=== PATIENT | male | born 1975 | race Hispanic/Latino ===

== ENCOUNTER 2016-09-15 14:38 | Emergency (ER) | payer OTHER ==
[2016-09-15 14:44] VITALS: BMI 33.2
[2016-09-15 14:48] VITALS: BP 111/77; PULSE 100; RESP 16; TEMP 98.7; O2SAT 98
--- NOTE | 2016-09-15 15:02 | ED PDOC ---
Arrival/HPI - General Chief Complaint: Abnormal Skin Integrity Time Seen by Provider: 09/15/16 14:56 Historian: Patient - History of Present Illness Narrative History of Present Illness (Text): 09/15/16 14:59 40 y/o male, pmh including bells palsy, nkda, c/o rt. sided scalp lump with pain started yesterday. Acing pain, pimple like sensation, painful to touch, no fever or chills, no headache or night sweat, no dizziness, no numbness or tingling, no palpitation, no rash, no other medical or psychological complaints. Past Medical History - Provider Review Nursing Documentation Reviewed: Yes - Infectious Disease Hx of Infectious Diseases: None - Neurological Other/Comment: granados's palsy - Psychiatric Hx Substance Use: No - Anesthesia Hx Anesthesia: No Family/Social History - Physician Review Nursing Documentation Reviewed: Yes Family/Social History: Unknown Family HX Smoking Status: Unknown If Ever Smoked Hx Alcohol Use: No Hx Substance Use: No Allergies/Home Meds Allergies/Adverse Reactions: Allergies No Known Allergies Allergy (Verified 05/06/16 11:23) Review of Systems - Review of Systems Constitutional: absent: Fatigue, Fevers Eyes: absent: Vision Changes ENT: absent: Hearing Changes Respiratory: absent: SOB, Cough Cardiovascular: absent: Chest Pain Gastrointestinal: absent: Abdominal Pain, Vomiting Psychiatric: absent: Anxiety, Depression, Suicidal Ideation Physical Exam Vital Signs Reviewed: Yes Vital Signs Temp Pulse Resp BP Pulse Ox 09/15/16 14:38 98.7 F 100 H 16 111/77 98 Temperature: Afebrile Blood Pressure: Normal Respiratory Rate: Normal Appearance: Positive for: Well-Appearing, Non-Toxic, Comfortable Pain Distress: Mild Mental Status: Positive for: Alert and Oriented X 3 - Systems Exam Head: Present: Atraumatic, Normocephalic, Other (rt. posterior occipital region visible and palpable approx. 1cm diameter with no fluctuant abscess pimple like , no cellulitis or streaking, no ulcers. ). No: Tenderness, Contusion, Swelling , Ecchymosis, Abrasion, Laceration Pupils: Present: PERRL Extroacular Muscles: Present: EOMI Conjunctiva: Present: Normal Mouth: Present: Moist Mucous Membranes Neck: Present: Normal Range of Motion Respiratory/Chest: Present: Clear to Auscultation, Good Air Exchange. No: Respiratory Distress, Accessory Muscle Use Cardiovascular: Present: Regular Rate and Rhythm, Normal S1, S2. No: Murmurs Abdomen: Present: Normal Bowel Sounds. No: Tenderness, Distention, Peritoneal Signs Back: Present: Normal Inspection Upper Extremity: Present: Normal Inspection. No: Cyanosis, Edema Lower Extremity: Present: Normal Inspection. No: Edema Neurological: Present: GCS=15, CN II-XII Intact, Speech Normal Skin: Present: Warm, Dry, Normal Color. No: Rashes Psychiatric: Present: Alert, Oriented x 3, Normal Insight, Normal Concentration Medical Decision Making ED Course and Treatment: 09/15/16 15:01 -clindmaycin 300mg po and motrin ordered. -Discharge home with clindamycin, motrin, warm compress, follow up with your own pmd within 2 days, return to the ER for any new or worsening signs or symptoms. - PA / CLINICAL COURIER / Resident Statement / has reviewed & agrees with the documentation as recorded. Disposition/Present on Arrival - Present on Arrival Any Indicators Present on Arrival: No History of DVT/PE: No History of Uncontrolled Diabetes: No Urinary Catheter: No History of Decub. Ulcer: No History Surgical Site Infection Following: None - Disposition Have Diagnosis and Disposition been Completed?: Yes Diagnosis: Furuncle of head, except face Disposition: HOME/ ROUTINE Disposition Time: 15:02 Patient Plan: Discharge Condition: GOOD Additional Instructions: Discharge home with clindamycin, motrin, warm compress, follow up with your own pmd within 2 days, return to the ER for any new or worsening signs or symptoms. Prescriptions: Clindamycin [Cleocin] 300 mg PO TID #27 cap Ibuprofen [Motrin Tab] 600 mg PO QID PRN #24 tab PRN Reason: Other Referrals: Celestino Baker MD [Staff Provider] - Follow up with primary [facility] [place] - Follow up with primary Forms: WORK NOTE
--- NOTE | 2016-09-15 15:40 | CT ---
PROCEDURE: CT HEAD WITHOUT CONTRAST. HISTORY: rt. lateral occipital lump? furuncle? COMPARISON: 05/06/16. TECHNIQUE: Axial computed tomography images were obtained through the head/brain without intravenous contrast. Radiation dose: Total exam DLP = 802 mGy-cm. This CT exam was performed using one or more of the following dose reduction techniques: Automated exposure control, adjustment of the mA and/or kV according to patient size, and/or use of iterative reconstruction technique. FINDINGS: HEMORRHAGE: No intracranial hemorrhage. BRAIN: No mass effect or edema. No atrophy or chronic microvascular ischemic changes. VENTRICLES: Unremarkable. No hydrocephalus. CALVARIUM: Unremarkable. PARANASAL SINUSES: Unremarkable as visualized. No significant inflammatory changes. MASTOID AIR CELLS: Unremarkable as visualized. No inflammatory changes. OTHER FINDINGS: Scattered small right para occipital lymph nodes. IMPRESSION: Scattered small right para occipital lymph nodes. No intracranial hemorrhage.
== END 2016-09-15 16:29 | disposition home or self-care (01) ==
LOC: ED 14:38
DX: L02.821 Furuncle of head [any part, except face] (principal)

== ENCOUNTER 2017-03-12 15:37 | Emergency (ER) | payer OTHER ==
[2017-03-12 16:03] VITALS: BMI 33.0
[2017-03-12 16:16] VITALS: BP 124/77; PULSE 84; RESP 17; TEMP 98.5; O2SAT 97
--- NOTE | 2017-03-12 16:46 | ED PDOC ---
Arrival/HPI - General Chief Complaint: ENT Problem Time Seen by Provider: 03/12/17 15:47 Historian: Patient - History of Present Illness Narrative History of Present Illness (Text): 03/12/17 16:43 41 y/o male, pmh including bells palsy, c/o lt. ear pain x 3 days. aching pain , aggravated by bitting, no change in vision, no dizziness, no throat no headache, no night sweat, no other medical or psychological complaints. Past Medical History - Provider Review Nursing Documentation Reviewed: Yes - Infectious Disease Hx of Infectious Diseases: None - Cardiac Hx Cardiac Disorders: No - Pulmonary Hx Respiratory Disorders: No Hx Chronic Obstructive Pulmonary Disease (COPD): No - Neurological Hx Neurological Disorder: Yes Other/Comment: granados's palsy right facial side. - HEENT Hx HEENT Disorder: No - Renal Hx Renal Disorder: No - Endocrine/Metabolic Hx Endocrine Disorders: No - Hematological/Oncological Hx Blood Disorders: No - Integumentary Hx Dermatological Disorder: No - Musculoskeletal/Rheumatological Hx Musculoskeletal Disorders: No - Gastrointestinal Hx Gastrointestinal Disorders: No - Genitourinary/Gynecological Hx Genitourinary Disorders: No - Psychiatric Hx Psychophysiologic Disorder: No Hx Substance Use: No - Anesthesia Hx Anesthesia: No Family/Social History - Physician Review Nursing Documentation Reviewed: Yes Family/Social History: Unknown Family HX Smoking Status: Current Some Days Smoker Hx Alcohol Use: No Hx Substance Use: No Allergies/Home Meds Allergies/Adverse Reactions: Allergies No Known Allergies Allergy (Verified 03/12/17 16:04) Review of Systems - Review of Systems Constitutional: absent: Fatigue, Fevers Eyes: absent: Vision Changes ENT: Other (lt. ear pain). absent: Hearing Changes Respiratory: absent: SOB, Cough Cardiovascular: absent: Chest Pain Gastrointestinal: absent: Abdominal Pain, Nausea, Vomiting Musculoskeletal: absent: Arthralgias, Back Pain Skin: absent: Rash, Pruritis Neurological: absent: Headache, Dizziness Psychiatric: absent: Anxiety, Depression, Suicidal Ideation Physical Exam Vital Signs Reviewed: Yes Vital Signs Temp Pulse Resp BP Pulse Ox 03/12/17 16:15 98.5 F 84 17 124/77 97 Temperature: Afebrile Blood Pressure: Normal Pulse: Regular Respiratory Rate: Normal Appearance: Positive for: Well-Appearing, Non-Toxic, Comfortable Pain Distress: Mild Mental Status: Positive for: Alert and Oriented X 3 - Systems Exam Head: Present: Atraumatic, Normocephalic Pupils: Present: PERRL Extroacular Muscles: Present: EOMI Conjunctiva: Present: Normal Ears: Present: Other (Ears: Lt. TM mild erythematous and intact, rt. TM tirso color and intact, bilateral auditory canals non-erythematous, no mastoid tenderness. ) Mouth: Present: Moist Mucous Membranes, Normal Tounge, Normal Teeth Pharnyx: No: ERYTHEMA, EXUDATE, TONSILS ENLARGED, Uvular Deviation, Muffled/ Hoarse Voice, Strider, Soft Palate/Uvular Edema Nose (External): Present: Atraumatic. No: Abrasion, Contusion Nose (Internal): Present: Normal Inspection, No Active Bleeding. No: Rhinorrhea , Septal Hematoma, Epistaxis Neck: Present: Normal Range of Motion Respiratory/Chest: Present: Clear to Auscultation, Good Air Exchange. No: Respiratory Distress, Accessory Muscle Use Cardiovascular: Present: Regular Rate and Rhythm, Normal S1, S2. No: Murmurs Abdomen: Present: Normal Bowel Sounds. No: Tenderness, Distention, Peritoneal Signs Back: Present: Normal Inspection Upper Extremity: Present: Normal Inspection. No: Cyanosis, Edema Lower Extremity: Present: Normal Inspection. No: Edema Neurological: Present: GCS=15, Speech Normal, Motor Func Grossly Intact, Gait Normal, Memory Normal Skin: Present: Warm, Dry, Normal Color. No: Rashes Psychiatric: Present: Alert, Oriented x 3, Normal Insight, Normal Concentration Medical Decision Making ED Course and Treatment: 03/12/17 16:47 -Case discussed with Dr. Coronel, he suggest to discharge home with amoxicillin -Discharge home with amoxicillin, motrin, stay hydrated, follow up with your own pmd and ENT within 2 days, return to the ER for any new or worsening signs or symptoms. - PA / BILLING CHECKER / Resident Statement MD/DO has reviewed & agrees with the documentation as recorded. Disposition/Present on Arrival - Present on Arrival Any Indicators Present on Arrival: No History of DVT/PE: No History of Uncontrolled Diabetes: No Urinary Catheter: No History of Decub. Ulcer: No History Surgical Site Infection Following: None - Disposition Have Diagnosis and Disposition been Completed?: Yes Diagnosis: Otitis media Disposition: HOME/ ROUTINE Disposition Time: 16:48 Patient Plan: Discharge Condition: GOOD Additional Instructions: -Discharge home with amoxicillin, motrin, stay hydrated, follow up with your own pmd and ENT within 2 days, return to the ER for any new or worsening signs or symptoms. Prescriptions: Amoxicillin 875 mg PO BID #20 tab Ibuprofen [Motrin] 600 mg PO QID PRN #24 tab PRN Reason: Other Referrals: Prema Yancey MD [Primary Care Provider] - Follow up with primary Tirso Fischer DO [Staff Provider] - Follow up with primary Forms: [employer] (Belizean), WORK NOTE
== END 2017-03-12 16:59 | disposition home or self-care (01) ==
LOC: ED 15:37
DX: H66.92 Otitis media, unspecified, left ear (principal)

== ENCOUNTER 2017-10-28 02:53 | Emergency (ER) | payer OTHER ==
[2017-10-28 03:02] VITALS: BMI 31.1
[2017-10-28] MEDS ORDERED: Oxycodone/Acetaminophen 5/325 mg Tab PO STA (03:25)
--- NOTE | 2017-10-28 03:56 | ED PDOC ---
Arrival/HPI - General Chief Complaint: Back Pain Time Seen by Provider: 10/28/17 03:23 Historian: Patient - History of Present Illness Narrative History of Present Illness (Text): 10/28/17 03:25 Jennifer Rapp is a 41 year old male who presents to the emergency department complaining of back pain for the past few hours. Patient states he was sitting down at home when he began experiencing lower back pain. Patient notes back pain is worsened with movement.States this has happened to him in the past. Denies any weakness/numbness/tingling in the extremity, paresthesias, headache, dizziness, neck pain, or any other complaints. Symptom Onset: Gradual Symptom Course: Unchanged Activities at Onset: Light Context: Home Past Medical History - Provider Review Nursing Documentation Reviewed: Yes - Infectious Disease Hx of Infectious Diseases: None - Cardiac Hx Cardiac Disorders: No - Pulmonary Hx Respiratory Disorders: No Hx Chronic Obstructive Pulmonary Disease (COPD): No - Neurological Hx Neurological Disorder: Yes Other/Comment: granados's palsy right facial side. - HEENT Hx HEENT Disorder: No - Renal Hx Renal Disorder: No - Endocrine/Metabolic Hx Endocrine Disorders: No - Hematological/Oncological Hx Blood Disorders: No - Integumentary Hx Dermatological Disorder: No - Musculoskeletal/Rheumatological Hx Musculoskeletal Disorders: No - Gastrointestinal Hx Gastrointestinal Disorders: No - Genitourinary/Gynecological Hx Genitourinary Disorders: No - Psychiatric Hx Psychophysiologic Disorder: No Hx Substance Use: No - Anesthesia Hx Anesthesia: No Family/Social History - Physician Review Nursing Documentation Reviewed: Yes Family/Social History: Unknown Family HX Smoking Status: Current Some Days Smoker Hx Alcohol Use: No Hx Substance Use: No Allergies/Home Meds Allergies/Adverse Reactions: Allergies No Known Allergies Allergy (Verified 10/28/17 03:02) Review of Systems - Physician Review All systems were reviewed & negative as marked: Yes - Review of Systems Constitutional: Normal. absent: Fevers Eyes: Normal ENT: Normal Respiratory: Normal. absent: SOB, Cough Cardiovascular: Normal. absent: Chest Pain Gastrointestinal: Normal. absent: Abdominal Pain, Diarrhea, Nausea, Vomiting, Appetite Changes Genitourinary Male: Normal. absent: Dysuria, Frequency, Hematuria, Urinary Output Changes Musculoskeletal: Back Pain. absent: Neck Pain Skin: Normal. absent: Rash Neurological: Normal. absent: Headache, Dizziness Endocrine: Normal Hemo/Lymphatic: Normal Psychiatric: Normal Physical Exam Vital Signs Reviewed: Yes Vital Signs Temp Pulse Resp BP Pulse Ox 10/28/17 05:30 98.2 F 77 14 115/82 98 10/28/17 03:03 98.7 F 79 19 130/64 95 Temperature: Afebrile Blood Pressure: Normal Pulse: Regular Respiratory Rate: Normal Appearance: Positive for: Well-Appearing, Non-Toxic, Comfortable Pain Distress: None Mental Status: Positive for: Alert and Oriented X 3 - Systems Exam Head: Present: Atraumatic, Normocephalic Pupils: Present: PERRL Extroacular Muscles: Present: EOMI Conjunctiva: Present: Normal Mouth: Present: Moist Mucous Membranes Neck: Present: Normal Range of Motion. No: Meningeal Signs, MIDLINE TENDERNESS , Paraspinal Tenderness Respiratory/Chest: Present: Clear to Auscultation, Good Air Exchange. No: Respiratory Distress, Accessory Muscle Use Cardiovascular: Present: Regular Rate and Rhythm, Normal S1, S2. No: Murmurs Abdomen: Present: Normal Bowel Sounds. No: Tenderness, Distention, Peritoneal Signs, Hernias Back: Present: Paraspinal Tenderness (paralumbar tenderness and spasms). No: CVA Tenderness, Midline Tenderness Upper Extremity: Present: Normal Inspection. No: Cyanosis, Edema Lower Extremity: Present: Normal Inspection. No: Edema Neurological: Present: GCS=15, CN II-XII Intact, Speech Normal Skin: Present: Warm, Dry, Normal Color. No: Rashes Psychiatric: Present: Alert, Oriented x 3, Normal Insight, Normal Concentration Medical Decision Making ED Course and Treatment: 10/28/17 03:25 Impression: 41 year old male complaining of lower back pain. Plan: -- Flexeril -- Percocet -- Toradol -- Reassess and disposition Progress Notes: 10/28/17 05:20 On re-evaluation, patient feels better and is in no acute distress. Patient is stable for discharge. Patient was instructed to follow up with physician or return if symptoms worsen or new concerning symptoms arise. - Medication Orders Current Medication Orders: Discontinued Medications Cyclobenzaprine HCl (Flexeril) 10 mg PO ONCE ONE Stop: 10/28/17 03:26 Last Admin: 10/28/17 03:35 Dose: 10 mg Ketorolac Tromethamine (Toradol) 60 mg IM ONCE ONE Stop: 10/28/17 03:26 Last Admin: 10/28/17 03:36 Dose: 60 mg MAR Pain Assessment Document 10/28/17 03:36 OCS (Rec: 10/28/17 03:37 [facility] [id number]) Pain Reassessment Is this a pain reassessment? Yes Sleep Is patient sleeping during reassessment? No Presence of Pain Presence of Pain Yes Pain Scale Used Pain Scale Used Numeric Location Upper or Lower Lower Pain Location Body Site Back Description Description Constant Intensity of Pain at present 10 Aggravating Factors ADL's IM Administration Charges Document 10/28/17 03:36 OCS (Rec: 10/28/17 03:37 [facility] [id number]) Injection Site MAR Injection Site Left Deltoid Charges for Administration # of IM Administrations 1 Oxycodone/Acetaminophen (Percocet 5/325 Mg Tab) 1 tab PO STAT STA Stop: 10/28/17 03:26 Last Admin: 10/28/17 03:36 Dose: 1 tab MAR Pain Assessment Document 10/28/17 03:36 OCS (Rec: 10/28/17 03:36 [facility] [id number]) Pain Reassessment Is this a pain reassessment? Yes Sleep Is patient sleeping during reassessment? No Presence of Pain Presence of Pain Yes Pain Scale Used Pain Scale Used Numeric Location Upper or Lower Lower Pain Location Body Site Back Description Description Constant Intensity of Pain at present 10 Aggravating Factors ADL's - Scribe Statement The provider has reviewed the documentation as recorded by the Cisco Yuan Provider Scribe Attestation: All medical record entries made by the Edgaribvijay were at my direction and personally dictated by me. I have reviewed the chart and agree that the record accurately reflects my personal performance of the history, physical exam, medical decision making, and the department course for this patient. I have also personally directed, reviewed, and agree with the discharge instructions and disposition. Disposition/Present on Arrival - Present on Arrival Any Indicators Present on Arrival: No History of DVT/PE: No History of Uncontrolled Diabetes: No Urinary Catheter: No History of Decub. Ulcer: No History Surgical Site Infection Following: None - Disposition Have Diagnosis and Disposition been Completed?: Yes Diagnosis: Low back strain, Muscle spasm Disposition: HOME/ ROUTINE Disposition Time: 05:20 Patient Plan: Discharge Condition: GOOD Discharge Instructions (ExitCare): Low Back Pain (DC), Muscle Strain (DC), Lumbar Muscle Strain (DC) Additional Instructions: Rest/no strenuous physical activity/take meds as prescribed/follow up with your doctor Prescriptions: Cyclobenzaprine [Cyclobenzaprine HCl] 10 mg PO TID PRN #15 tab PRN Reason: Muscle Spasm oxyCODONE/Acetaminophen [Percocet 5/325 mg Tab] 1 ea PO Q6 PRN #12 tab PRN Reason: Pain, Moderate (4-7) Referrals: Francia Chahal MD [Primary Care Provider] - Follow up with primary Forms: [employer] (Turkmen)
[2017-10-28 05:45] VITALS: BP 115/82; PULSE 77; RESP 14; TEMP 98.2; O2SAT 98
== END 2017-10-28 05:30 | disposition home or self-care (01) ==
LOC: ED 02:53
DX: S39.012A Strain of muscle, fascia and tendon of lower back, initial encounter (principal); X50.1XXA Overexertion from prolonged static or awkward postures, initial encounter; Y92.89 Other specified places as the place of occurrence of the external cause; M62.838 Other muscle spasm
CPT/HCPCS: 96372; 99282; J1885